=== PATIENT | female | born 1985 | race Caucasian/White ===

== ENCOUNTER 2023-11-21 08:53 | Emergency (ER) | payer OTHER, SELFPAY ==
[2023-11-21 08:59] VITALS: BP 164/126
[2023-11-21 09:52] VITALS: BP 99/69
--- NOTE | 2023-11-21 10:11 | ED.GENMED ---
History of Present Illness
General
Chief Complaint: Skin Problem
Time Seen by Provider: 11/21/23 09:42
History of Present Illness
History of Present Illness:
38-year-old female without significant past medical history presenting to the emergency department for right lower extremity swelling and redness. Patient [place], thinks that she was bit by something. The bite was
on her left lower extremity. She did not have any significant reaction at that time. However, 3 days ago she was outside walking her dog at nighttime. She started to develop redness to her right lower extremity, which has progressed overnight.
She now has redness, some blistering, pain and swelling. She also reports itching. She is unsure if she was bit by anything. She denies any history of blood clots, recent surgery, recent travel. She denies any fever or systemic symptoms. She
denies injury. She denies any known exposure to plants such as poison seven. She denies chest pain or difficulty breathing or additional acute medical complaints
Past History
Past History
ED Past Medical History: None
ED Past Surgical History: None
Social History
Tobacco: Non-smoker
Alcohol: Occasional
Personal:
Living: with family
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
Phy Exam
Physical Exam
Physical Exam:
General: Well-appearing, no clinical signs of dehydration, nontoxic and in no acute distress
HEENT: protecting airway
Neck: appears supple
CV: Normal heart rate
Resp: No accessory muscle use, no increased work of breathing
Abd: non-distended
Extremities: No deformities. Swelling to the right ankle with redness extending up to the lower calf region. No tenderness to the calf. There is mild skin blistering at the medial aspect of the ankle. No obvious breaks in the skin. Distal
sensation and pulses intact. Range of motion grossly intact.
Neuro: alert, no focal neurologic deficit
: deferred
Rectal: deferred
Psych: Normal affect
Skin: Intact
Course
Orders/Labs/Results
Orders:
Orders
11/21/23 10:08
Lyme PCR, DNA [S] Urgent
11/21/23 10:09
Cephalexin Monohydrate [Keflex] 500 mg PO NOW STA
Prednisone [Deltasone] 50 mg PO NOW STA
Sulfamethoxazole/Trimethoprim [Bactrim 400 mg/80 mg] 1 tablet PO NOW STA
Vital Signs
Initial and Last Documented VS:
Initial Vital Signs
Temp Pulse Resp BP Pulse Ox
98.1 F 77 18 164/126 98
11/21/23 08:59 11/21/23 08:59 11/21/23 08:59 11/21/23 08:59 11/21/23 08:59
Last Documented Vital Signs
Temp Pulse Resp BP Pulse Ox
98.1 F 59 16 99/69 98
11/21/23 08:59 11/21/23 09:52 11/21/23 09:52 11/21/23 09:52 11/21/23 08:59
MDM/Problems Addressed
MDM/Problems Addressed:
38-year-old female without significant past medical history presenting for lower extremity swelling, redness, pain and itching. Vital signs on arrival are significant for hypertension, however resolved without intervention.
On exam, patient is well-appearing, nontoxic. Patient does have swelling to the right lower extremity, in comparison to the left. However, appears infectious. There is cellulitic changes with small areas of skin blistering. No neurovascular
compromise. No deformity or issues with range of motion, no report of trauma. Patient is Wells DVT negative, without active cancer, not bedridden, no calf swelling, no collateral superficial veins present, entire leg is not swollen, no localized
tenderness along the deep venous system, no pitting edema, no paralysis, no previous DVT. Unclear etiology of infection, suspect patient was bit by something. There is what appears to be mosquito bites to the left lower extremity as well. Lyme's
disease is also a consideration, however does not appear consistent with erythema migrans. Given endemic to this region, will send a Lyme's test. Poison seven is also consideration given blistering component. For this reason we will start on
antibiotic, Bactrim and Keflex, and a steroid taper. Otherwise feel stable for discharge with close interval outpatient follow-up. Strict return precautions communicated and patient verbalized understanding
*Critical Care Note
Total Time (30-74mins, 75-104mins- exclusive of procedures): Not Applicable
ED Attending Note
-
Portions of this chart may have been created with voice recognition software.� Occasional wrong word or��sound alike� substitutions may have occurred due to the inherent limitations of voice recognition software.
Discharge Plan
Interventions
Interventions:
*Risk Screen - Suicide Last Done: 11/21/23 08:59
*General Assessment Last Done: 11/21/23 08:59
*Neglect/Abuse Screening Last Done: 11/21/23 08:59
*ED COVID-19 Vaccine History Last Done: 11/21/23 08:59
Discharge Date and Time
Print Language: [id number]
[2023-11-21] MEDS: DELTASONE 50 MG PO (10:41)
[2023-11-21] MEDS: KEFLEX 500 MG PO (10:42)
[2023-11-21] MEDS: BACTRIM 400 MG/80 MG 1 TABLET PO (10:42)
[2023-11-21 14:39] LABS: Lyme Antibody Screen, EIA Negative (Negative)
== END 2023-11-21 10:56 | disposition home or self-care (01) ==
LOC: EMR 08:53
PROVIDERS: EMERGENCY PHYSICIAN Student in an Organized Health Care Education/Training Program; FAMILY PHYSICIAN Internal Medicine Geriatric Medicine
DX: M79.89 Other specified soft tissue disorders (principal); M25.471 Effusion, right ankle; L29.9 Pruritus, unspecified; M79.604 Pain in right leg; S80.821A Blister (nonthermal), right lower leg, initial encounter; X58.XXXA Exposure to other specified factors, initial encounter
CPT/HCPCS: 99283; 86618